=== PATIENT | male | born 1955 | race Caucasian/White ===

== ENCOUNTER → 2022-04-06 | Outpatient (CLI) | payer MEDICARE ==
[~2022-04-06] MED LIST: IOPAMIDOL 370 MG/ML 100 ML INFUS..BTL INJ ONE
== END ==
LOC: CT 07:04
PROVIDERS: ATTEND Internal Medicine Infectious Disease
DX: B39.9 Histoplasmosis, unspecified (principal); E27.8 Other specified disorders of adrenal gland
CPT/HCPCS: 74177; Q9967

== ENCOUNTER → 2022-04-23 | Outpatient (CLI) | payer MEDICARE | LOC: CT 07:58 | PROVIDERS: ATTEND Internal Medicine Infectious Disease | DX: I13.0 Hypertensive heart and chronic kidney disease with heart failure and stage 1 through stage 4 chronic kidney disease, or unspecified chronic kidney disease (principal) | CPT/HCPCS: 74170; Q9967 ==